=== PATIENT | male | born 1975 | race Caucasian/White ===

== ENCOUNTER → 2017-03-04 09:56 | Outpatient (CLI) | payer MEDICARE, MEDICAID | END | disposition home or self-care (01) | LOC: D.CT 09:56 | DX: R10.9 Unspecified abdominal pain (principal) ==

== ENCOUNTER → 2018-08-14 09:14 | Outpatient (CLI) | payer MEDICARE, MEDICAID ==
[2013-04-10 08:19] VITALS: BMI 31.9
== END | disposition home or self-care (01) ==
LOC: D.RAD 09:14
DX: M54.2 Cervicalgia (principal)

== ENCOUNTER 2018-11-23 00:28 | Emergency (ER) | payer MEDICARE, MEDICAID ==
[~2018-11-23] VITALS: Ht 175.3 cm; Wt 109.1 kg
[2018-11-23 00:44] VITALS: Ht 175.3 cm; Wt 109.1 kg
[2018-11-23] MEDS ORDERED: CONCERTA 36 MG36 MG PO (00:46)
[2018-11-23] MEDS ORDERED: GLEEVEC100 MG PO (00:47)
[2018-11-23 01:20] LABS: BASOPHILS 0.2 % (0-2); EOSINOPHILS 3.1 % (0-7); HEMATOCRIT 40.8 % (42.0-54.0); HEMOGLOBIN 13.9 g/dL (13.5-17.5); IMMATURE GRANULOCYTES 0.2 % (0-5); LYMPHOCYTES 30.3 % (15-50); MCH 32.6 pg (26.0-34.0); MCHC 34.1 g/dL (31.0-37.0); MCV 95.6 fL (80.0-100.0); MEAN PLATELET VOLUME 10.2 fL (7.4-10.4); MONOCYTES 8.7 % (2-11); NEUTROPHILS 57.5 % (40-80); PLATELET COUNT 274 10x3/uL (130-400); RBC 4.27 10x6/uL (4.20-6.10); RDW 14.3 % (11.5-14.5); WBC 10.3 10x3/uL (4.8-10.8)
[2018-11-23 01:35] LABS: ALBUMIN 3.7 g/dL (3.4-5.0); BILIRUBIN - TOTAL 0.54 mg/dL (0.2-1.3); C-REACTIVE PROTEIN 3.4 mg/dL (0.0-0.9); CALCIUM 8.5 mg/dL (8.5-10.1); CARBON DIOXIDE 31.3 mmol/L (21.0-32.0); CREATININE - SERUM 1.4 mg/dL (0.6-1.3); POTASSIUM - SERUM 4.3 mmol/L (3.5-5.1); PROTEIN - SERUM 7.5 g/dL (6.4-8.2); URIC ACID 9.4 mg/dL (2.6-7.2)
[2018-11-23] MEDS ORDERED: INDOCIN25 MG PO (02:27)
[2018-11-23 03:09] VITALS: BP 148/88
== END 2018-11-23 03:09 | disposition home or self-care (01) ==
LOC: D.ER 00:28
PROVIDERS: Family Medicine
DX: M10.072 Idiopathic gout, left ankle and foot (principal); F17.200 Nicotine dependence, unspecified, uncomplicated

== ENCOUNTER → 2019-03-02 11:39 | Outpatient (CLI) | payer MEDICARE, MEDICAID ==
[~2019-03-02 11:39] MED LIST: CONCERTA 36 MG36 MG PO; GLEEVEC100 MG PO; INDOCIN25 MG PO
== END | disposition home or self-care (01) ==
LOC: D.RAD 11:39
DX: R07.82 Intercostal pain (principal)

== ENCOUNTER 2019-04-24 10:49 | Emergency (ER) | payer MEDICARE, MEDICAID ==
[~2019-04-24] VITALS: Ht 175.3 cm; Wt 104.5 kg
[2019-04-24 11:17] VITALS: Ht 175.3 cm; Wt 104.5 kg
[2019-04-24] MEDS ORDERED: OMEPRAZOLE40 MG PO (11:19)
--- NOTE | 2019-04-24 12:41 | NUR ---
DR. ONEAL NOTIFIED AND REVIEWED PTS BEHAVIOR AND ASSESSMENT RESULTS. PT IS LOW RISK PER DR. FONTANA ORDER. DR. FONTANA STATED TO GIVE RESOURCES TO PT AT TIME OF DISCHARGE. NO FURTHER ORDERS AT THIS TIME. RESOURCES REVIEWED WITH PT AND HE VERBALIZED UNDERSTANDING.
[2019-04-24] MEDS ORDERED: TORADOL10 MG PO (13:14)
[2019-04-24 13:49] VITALS: BP 107/68
== END 2019-04-24 14:06 | disposition home or self-care (01) ==
LOC: D.ER 10:49
DX: Z87.81 Personal history of (healed) traumatic fracture (principal)

== ENCOUNTER 2020-02-07 11:18 | Emergency (ER) | payer MEDICARE, MEDICAID ==
[~2020-02-07] VITALS: Ht 175.3 cm; Wt 100.9 kg
[~2020-02-07 11:18] MED LIST changes: +OMEPRAZOLE40 MG PO; +TORADOL10 MG PO
[2020-02-07 11:21] VITALS: Ht 175.3 cm; Wt 100.9 kg
[2020-02-07] MEDS ORDERED: INDOCIN25 MG PO (11:28)
[2020-02-07 11:43] LABS: BILIRUBIN NEGATIVE (NEGATIVE); GLUCOSE NEGATIVE (NEGATIVE); KETONE NEGATIVE (NEGATIVE); NITRITE NEGATIVE (NEGATIVE); SPECIFIC GRAVITY 1.005 (1.005-1.020); UROBILINOGEN NORMAL (NORMAL)
[2020-02-07] MEDS ORDERED: ACETAMINOPHEN500 M1 PO (13:28)
[2020-02-07] MEDS ORDERED: IBUPROFEN800 MG PO (13:28)
[2020-02-07] MEDS ORDERED: CYCLOBENZAPRINE10 MG PO (13:28)
[2020-02-07 13:46] VITALS: BP 128/72
== END 2020-02-07 13:47 | disposition home or self-care (01) ==
LOC: D.ER 11:18
PROVIDERS: Family Medicine
DX: M54.6 Pain in thoracic spine (principal); M54.5 Low back pain; M79.18 Myalgia, other site; T14.8XXA Other injury of unspecified body region, initial encounter; K21.9 Gastro-esophageal reflux disease without esophagitis; D47.09 Other mast cell neoplasms of uncertain behavior